=== PATIENT | male | born 1955 | race Caucasian/White ===

== ENCOUNTER → 2020-07-08 | Outpatient (CLI) | payer BC, OTHER | END | disposition home or self-care (01) | LOC: RAD 17:54 | PROVIDERS: ATTEND Family Medicine | DX: K44.9 Diaphragmatic hernia without obstruction or gangrene (principal); N20.0 Calculus of kidney | CPT/HCPCS: 74176 ==

== ENCOUNTER 2020-07-09 15:11 | Emergency (ER) | payer OTHER ==
[~2020-07-09] VITALS: Ht 182.9 cm; Wt 83.4 kg
--- NOTE | 2020-07-09 15:45 | NUR ---
CC OF LOWER BACK PAIN 5/10 AT REST. PT STATES HE WAS SEEN AT YESTERDAY AND HAD US DONE THAT SHOWED MULTIPLE KIDNEY STONES AND HE WAS ADVISE TO COME GET SEEN AFTER MD CALLED HIM TODAY. PT STATES HE HAD KIDNEY STONES 9 MONTHS AGO AND WAS ABLE TO PASS ONE. DENIES ABD PAIN.
[2020-07-09 15:49] LABS: MICROSCOPIC NOT IND
--- NOTE | 2020-07-09 15:50 | NUR ---
PT TO CT
[2020-07-09 16:00] LABS: BASOPHILS % (AUTO) 2 % (0-1); EOSINOPHILS % (AUTO) 5 % (1-7); LYMPHOCYTES % (AUTO) 29 % (22-44); MEAN CORPUSCULAR HEMOGLOBIN 22.2 pg (27.5-34.5); MEAN CORPUSCULAR HGB CONC 31.6 g/dL (33.2-36.2); MEAN PLATELET VOLUME 7.8 fL (7.4-10.4); MONOCYTES % (AUTO) 11 % (2-9); NEUTROPHILS % (AUTO) 54 % (42-75); PLATELET COUNT 330 x10^3/uL (130-400); RED BLOOD COUNT 4.34 x10^6/uL (4.38-5.82); RED CELL DISTRIBUTION WIDTH 16.1 % (9.4-14.8)
[2020-07-09 16:02] LABS: MD NO
[2020-07-09 16:08] LABS: ALBUMIN 4.1 g/dL (3.4-5.0); ANION GAP 5 mmol/L (5-15); CALCIUM 9.1 mg/dL (8.5-10.1); CHLORIDE 106 mmol/L (98-107)
[2020-07-09 16:12] LABS: ALANINE AMINOTRANSFERASE 21 U/L (12-78); ALKALINE PHOSPHATASE 59 U/L (45-117); BILIRUBIN,TOTAL 0.4 mg/dL (0.2-1.0); CREATININE 1.41 mg/dL (0.7-1.3); TOTAL PROTEIN 7.6 g/dL (6.4-8.2)
[2020-07-09 17:00] VITALS: BP 111/61
== END 2020-07-09 17:35 | disposition home or self-care (01) ==
LOC: ED 17:05
DX: S39.012A Strain of muscle, fascia and tendon of lower back, initial encounter (principal); D50.0 Iron deficiency anemia secondary to blood loss (chronic); X58.XXXA Exposure to other specified factors, initial encounter; Y93.89 Activity, other specified; Y92.89 Other specified places as the place of occurrence of the external cause; Y99.8 Other external cause status
CPT/HCPCS: 36415; 72131; 80053; 81003; 85025; 99284

== ENCOUNTER 2020-07-12 22:44 | Emergency (ER) | payer OTHER ==
[~2020-07-12] VITALS: Ht 182.9 cm; Wt 82.8 kg
[2020-07-12] MEDS ORDERED: ONDANSETRON 2MG/ML, 2ML ONE (23:23)
--- NOTE | 2020-07-12 23:29 | NUR ---
pt in bed with no signs or symptoms of acute dsitress noted respiraitons even and unlabored, at bedside. pt with urinal and call light within reach, verbalizes understanding and agreement with plan of care. ivf infusing well at r ac.
[2020-07-12] MEDS ORDERED: SODIUM CHLORIDE 0.9% 1,000ML IVBOLUS ONE (23:30)
[2020-07-12] MEDS ORDERED: ONDANSETRON 2MG/ML, 2ML IVPush ONE (23:30)
[2020-07-12 23:33] LABS: BASOPHILS % (AUTO) 1 % (0-1); EOSINOPHILS % (AUTO) 4 % (1-7); LYMPHOCYTES % (AUTO) 29 % (22-44); MEAN CORPUSCULAR HEMOGLOBIN 21.7 pg (27.5-34.5); MEAN PLATELET VOLUME 8.2 fL (7.4-10.4); MONOCYTES % (AUTO) 10 % (2-9); NEUTROPHILS % (AUTO) 56 % (42-75); PLATELET COUNT 325 x10^3/uL (130-400); RED BLOOD COUNT 4.64 x10^6/uL (4.38-5.82)
[2020-07-12 23:35] LABS: MD NO
[2020-07-12 23:44] LABS: ALANINE AMINOTRANSFERASE 18 U/L (12-78); ALBUMIN 3.8 g/dL (3.4-5.0); ANION GAP 6 mmol/L (5-15); CALCIUM 8.7 mg/dL (8.5-10.1); CHLORIDE 105 mmol/L (98-107); CREATININE 0.94 mg/dL (0.7-1.3)
[2020-07-12 23:48] LABS: ALKALINE PHOSPHATASE 61 U/L (45-117); BILIRUBIN,TOTAL 0.3 mg/dL (0.2-1.0); TOTAL PROTEIN 7.7 g/dL (6.4-8.2); TROPONIN I < 0.015 ng/mL (0.000-0.045)
[2020-07-13] MEDS ORDERED: ONDANSETRON 2MG/ML, 2ML ONE (00:25)
[2020-07-13 00:29] LABS: MICROSCOPIC AUTO
--- NOTE | 2020-07-13 00:29 | NUR ---
pt in bed with no signs or symptoms of acute distress noted respirations even and unlabored, pt complaining of persistant nausea. md aware, pt medicated as ordered with repeat zofran, pt and spouse verbalize appreciation for cares and concerns. pt with bed rails up bilaterally and call light within reach, lights low in room for comfort.
[2020-07-13] MEDS ORDERED: ONDANSETRON 2MG/ML, 2ML IVPush ONE ×2 (00:30)
[2020-07-13] MEDS ORDERED: METOCLOPRAMIDE 5 MG/ML, 2ML ONE (01:11)
--- NOTE | 2020-07-13 01:18 | NUR ---
rn in room to dc pt, pt sat up and stated "i think im going to throw up" pt given emesis bag and a small amount of bilious output noted. md aware, new order noted for iv reglan, pt medicated as ordered. pt in position of comfort in bed with at bedside, bed rails up bilaterally and call light within reach. no signs or symptoms of acute distress noted respirations even and unlabored
[2020-07-13] MEDS ORDERED: METOCLOPRAMIDE 5 MG/ML, 2ML IVPush ONE (01:30)
--- NOTE | 2020-07-13 01:46 | NUR ---
pt with rn to stand at edge of bed, pt denies dizziness or nausea, states he feels well enough to go home. md aware and agreeable, pt and verbalize understanding and agreement with plan of care. iv out, pt ready to dc, no signs or symptoms of acute dsitress noted respirations even and unlabored
[2020-07-13 01:47] VITALS: BP 167/85
== END 2020-07-13 01:48 | disposition home or self-care (01) ==
LOC: ED 23:09
DX: M48.061 Spinal stenosis, lumbar region without neurogenic claudication (principal); R11.2 Nausea with vomiting, unspecified; R94.31 Abnormal electrocardiogram [ECG] [EKG]; E11.9 Type 2 diabetes mellitus without complications
CPT/HCPCS: 36415; 80053; 81001; 83690; 84484; 85025; 93005; 96361; 96374; 96375; 96376; 99284; J2405; J2765; J7030